=== PATIENT | female | born 1960 | race Caucasian/White ===

== ENCOUNTER → 2016-04-01 | Outpatient (CLI) | payer OTHER ==
[~2016-04-01] MED LIST: APAP/OXYCODONE1 TA1 PO; AUGMENTIN 875-1 EACH PO; FLEXERIL10 MG PO; FLONASE 50 MCG16 GM; IMITREX100 MG PO; MINIVELLE0.025 MG/2 TD; OMEPRAZOLE40 MG PO; PERCOCET 5/3251 EACH PO; PERCOCET1 TAB PO; ROBAXIN-750750 MG PO; SINGULAIR10 MG PO; SYNTHROID0.137 MG PO; VITAMIN D31000 IU PO; VIVELLE-DO0.1 MG/24 TD; ZOFRAN 8MG TABLE8 MG PO; ZOFRAN ODT4 MG PO
--- NOTE | 2016-04-01 17:50 | RADIOLOGY REPORT PS360 ---
[id number] VIEWS ORDERING PHYSICIAN : Charly Malik MD PATIENT AGE: 55 years GENDER: Female INDICATION: S/P FALL, RT SHOULDER PAIN Fell over weekend with persistent right shoulder pain TECHNIQUE: 3 views right shoulder AP internal and rotation view along with Y view COMPARISON: FINDINGS The humeral head and neck are intact with no fracture nor dislocation. Proximal humerus unremarkable. The glenohumeral joint appears intact. AC joint intact. Scapula unremarkable. IMPRESSION: ] Negative right shoulder. No fracture nor dislocation
--- NOTE | 2016-04-01 21:14 | RADIOLOGY REPORT PS360 ---
CT EXT.UPPER-RT-W/O CONTRAST CT right elbow 3-D volume reconstructions CT workstation patient including volume rendering & shading ORDERING PHYSICIAN : Charly Malik MD PATIENT AGE: 55 years GENDER: Female INDICATION: S/P FALL, OLECRANON FX pain right elbow TECHNIQUE: Helical CT scanning performed through the elbow. Sagittal coronal reconstructions performed. In addition retrocardiac performed additional 3-D volume rendering images with Dr. Malik Orthopedic physician, reviewing at radiologist workstation ..3-D volume reconstructions CT workstation patient including volume rendering & shading. --77 CPT COMPARISON: Plain films right elbow FINDINGS : . Oblique fracture through the proximal olecranon. This study shows that it does not involve the radial ulnar articulation. This was one of the goals of the study. On the sagittal reconstructions the see that this is oblique fracture, passes obliquely through the proximal olecranon to the central ulnar articular surface at elbow joint. There is good alignment of the articular cortex- No significant offset or displacement is seen at the articular cortex... Images reviewed with Dr. Malik The fracture become only slightly wider measuring just ~1.2 mm wide mm on CT as it where it passes through the posterior cortex of the proximal ulnar shaft. Actually it would appear the mild distraction at this point at posterior cortex of proximal ulna, appears slightly less evident than on previous plain film.. The humeral head is intact. The distal humerus is intact.. Joint effusion evident Posterior splint in place. ------IMPRESSION : 1. oblique fracture of the proximal olecranon. 2. It passes to central articular surface of the ulna at the elbow joint however there is no significant offset or displacement of the articular cortex text :
== END ==
LOC: RAD 08:46
DX: M25.511 Pain in right shoulder (principal); S52.021A Displaced fracture of olecranon process without intraarticular extension of right ulna, initial encounter for closed fracture

== ENCOUNTER → 2016-04-18 | Outpatient (CLI) | payer OTHER ==
--- NOTE | 2016-04-18 10:56 | RADIOLOGY REPORT PS360 ---
ELBOW-RT-3 VIEWS HISTORY: Follow-up fracture/ORIF S/P SURGERY FU COMPARISON: 04/05/2016 FINDINGS: Bone plate is present along the dorsal and proximal aspect of the ulna with 5 transfixing screws. There is good alignment of the bony fragments with no significant displacement or angulation. Fracture line is still visible. Skin clips are present There is some cortical irregularity of the articular surface of the radius consistent with nondisplaced fracture. This is not apparent on the previous studies. IMPRESSION: 1. Status post ORIF of the proximal ulna with good alignment 2. Mild irregularity of the articular surface of the radius suggesting nondisplaced fracture
== END ==
LOC: RAD 09:02
DX: S52.001K Unspecified fracture of upper end of right ulna, subsequent encounter for closed fracture with nonunion (principal)

== ENCOUNTER → 2016-05-20 | Outpatient (CLI) | payer OTHER ==
--- NOTE | 2016-05-22 09:46 | RADIOLOGY REPORT PS360 ---
ELBOW-RT-3 VIEWS ORDERING PHYSICIAN : Charly Malik MD PATIENT AGE: 55 years GENDER: Female INDICATION: F/U FX TECHNIQUE: 3 views right elbow COMPARISON: Previous 04/18/2016 right elbow series FINDINGS Stable ORIF of the of the mildly comminuted fracture the proximal ulna.. Metallic Bone plate is been applied to the dorsal aspect of the proximal ulna with 5 transfixing screws. The more proximal screw passing longitudinally through the proximal ulna. Stable position & Good alignment of fracture and fixation elements.. Fracture line remains visible with little if any healing evident as of yet. Relationships at the elbow appear intact and satisfactory. There is question of possible fracture at the radial head on on the in early study but at this appears to be congruent on these follow-up exams in good position as well. IMPRESSION: Stable position of fracture and fixation elements at the fracture of the proximal ulna . The questionable fracture at the radial head noted on previous studies, is less apparent today & appears congruent position.
== END ==
LOC: RAD 07:19
DX: S52.001K Unspecified fracture of upper end of right ulna, subsequent encounter for closed fracture with nonunion (principal)

== ENCOUNTER → 2017-01-01 | Outpatient (CLI) | payer OTHER ==
[~2017-01-01] MED LIST changes: +AMLO2.5T PO; +CYANOCOBAL1000 MCG/M PO; +ESTRADIOL1 EACH TD; +LEXAPRO 20 MG T20 MG PO; +MELOXICAM7.5 MG PO
--- NOTE | 2017-01-02 20:42 | RADIOLOGY REPORT PS360 ---
--- MRI-T-SPINE W/O HISTORY: CHEST WALL PAIN] ad mid back pain months and is worse on the scapula. No trauma Patient Age: 56 years: Female Ordering Physician: Ken Rosario MD TECHNIQUE: Sagittal T1-T2 and STIR. Axial T1-T2 COMPARISON : No previous T-spine studies but there is a MR I C-spine 11/13/2012 used as reference as well is a April 08, 2016 CTA chest used as reference. FINDINGS Beginning superiorly images at lower C-spine . C6/7. Prominent leftward disc protrusion effacing the left aspect of the cervical cord. Disc protrusion is seen here previously on the 2012 MR. Again seen today., Appears similar to that prior study. T2/3 & T3/4 there is bilateral facet hypertrophy and mild calcification ligament flavum. These features encroaches upon the foramen and slightly indents the posterior thecal sac at these levels.. This is most evident to the right where yields sagittal view suggests mild foraminal encroachment... No axial images were obtained through this level but I believe these posterior element hypertrophic changes can be nicely seen onCTA chest March 2016 which includes T2/3 & T3/4 facets at most superior cuts.. These also seen slightly encroaches upon posterior foramen at these levels on 2012 MR C-spine. . Similar but less evident findings encountered the T4/5 T5/6 and less evident below these levels. Continuing inferiorly we then again encounter more pronounced facet hypertrophy again at T7/8 minimally indenting posterior thecal sac to the left.. With slight less evident facet hypertrophy T8/9 , T 9-10 thin slightly more evident T10-11 & T11/12.... Please note that This facet arthropathy hypertrophy feature is actually best seen on the prior prior CTA chest March 2016 At T5/6 I suspect small/moderate cephalad disc extrusion, which extends along the posterior aspect of T5 disc. We do not have axial images through this region well and will call the patient back for additional slices through this level. This does appear to efface the anterior aspect of thoracic cord at midline as best seen on the sagittal STIR image set. . T8-9. Small disc protrusion central and to the right which does abut the anterior aspect of thoracic cord. IMPRESSION: 1... C6/7. Prominent leftward disc herniation effaces cervical cord. Is generous disc extrusion was seen on a 2013 MRI C-spine and appears similar compared to that study. No prominent change 2... T5/6. Small/moderate Cephalad disc extrusion. This appears to abut and mildly efface the thoracic cord on sagittal images (*Patient is to return for axial MRI imaging through this level)* 3... T8-9: Small central protrusion which becomes less evident as it extends rightward. This Just abuts the lower thoracic cord at midline 4... Multilevel facet hypertrophy evident & calcification of ligamentum flavum noted. . . These features slightly indents the posterior aspect of the spinal canal encroaches upon the neural foramen at multiple levels but most notable foraminal encroachment T2/3. T3/4. Generous posterior facet hypertrophy at multiple other levels slightly indenting the posterior thecal sac at multiple levels as described above. These latter features is actually better seen on the previous CTA chest from March 2016. Please note that exam
== END ==
LOC: RAD 07:51
DX: R07.89 Other chest pain (principal)